=== PATIENT | female | born 1960 | race Caucasian/White ===

== ENCOUNTER 2017-05-12 12:54 | Emergency (ER) | payer OTHER ==
--- NOTE | 2017-05-12 13:19 | UC ---
Respiratory Complaint HPI - HPI Summary HPI Summary: History of COPD with worsening cough over several weeks, with production. Uses albuterol only, with some relief of dyspnea. Increasing pain in the right lower rib cage with worsening cough. Has not been using analgesics. Non-smoker for some time, but has a long history of smoking. - History of Current Complaint Stated Complaint: sob,chest pain Time Seen by Provider: 05/12/17 12:58 Hx Obtained From: Patient Onset/Duration: Gradual Onset, Lasting Weeks - 2 to 3 weeks of cough Timing: Intermittent Episodes Severity Initially: Moderate Severity Currently: Moderate Character: Cough: Productive - green sputum Aggravating Factors: Deep Breaths, Recumbent Position Alleviating Factors: Bronchodilator, Upright Position Associated Signs And Symptoms: Positive: Dyspnea, Pleuritic Chest Pain - Risk Factors Pulmonary Embolism Risk Factors: Negative Cardiac Risk Factors: Negative Pseudomonas Risk Factors: Negative - Allergies/Home Medications Allergies/Adverse Reactions: Allergies Allergy/AdvReac Type Severity Reaction Status Date / Time No Known Allergies Allergy Verified 05/12/17 13:13 Home Medications: Home Medications Albuterol 2.5MG/3ML (0.083%)* [Ventolin 2.5 MG/3 ML NEB.ALEXANDRA*] 2.5 mg INH Q4H PRN 05/12/17 [History Confirmed 05/12/17] Albuterol HFA INHALER* [Ventolin HFA Inhaler*] 2 puff INH Q4H PRN 05/12/17 [ History Confirmed 05/12/17] PMH/Surg Hx/FS Hx/Imm Hx Respiratory History: COPD Neurological History: Other - multiple sclerosis since 1989, stopped meds. Other Neurological History: multiple sclerosis - Surgical History Surgical History: Yes Surgery Procedure, Year, and Place: , tubal ligation - Family History Known Family History: Positive: Cardiac Disease, Hypertension, Diabetes, Other - mother of cirrhosis of the liver. - Social History Occupation: Employed Full-time - school bus [employer] Alcohol Use: None Substance Use Type: None Smoking Status (MU): Light Every Day Tobacco Smoker Type: Cigarettes Amount Used/How Often: 3 cigs daily, TRYING TO QUIT Have You Smoked in the Last Year: No Household Exposure Type: Cigarettes Review of Systems Constitutional: Fever, Fatigue Respiratory: Shortness Of Breath, Cough Cardiovascular: Chest Pain - left lower ribs Motor: Weakness - bilateral leg weakness secondary to MS All Other Systems Reviewed And Are Negative: Yes Physical Exam Triage Information Reviewed: Yes Appearance: Ill-Appearing, Thin Vital Signs Reviewed: Yes Eyes: Positive: Conjunctiva Clear ENT: Positive: Pharynx normal Neck: Positive: Supple, Nontender, No Lymphadenopathy Respiratory: Positive: Decreased breath sounds, Expiration - prolonged Cardiovascular: Positive: RRR, No Murmur Abdomen Description: Positive: Nontender, No Organomegaly, Soft Musculoskeletal Exam: Other - grossly normal Neurological: Positive: Alert Psychological Exam: Normal Skin Exam: Normal UC Diagnostic Evaluation - Laboratory Diagnostic Studies Comment: chest xray with hyperinflation, RML infiltrate Re-Evaluation - Re-Evaluation First Eval Re-Evaluation Time: 14:25 - pain improved, O2 sat 97% post albuterol Change: Improved Respiratory Course/Dx - Course Course Of Treatment: zpack for pneumonia. change to duoneb from albuterol. follow up with PMD. ibuprofen for chest wall pain - Differential Dx/Diagnosis Differential Diagnosis/HQI/PQRI: Bronchitis, Pulmonary Embolism, Other - pneumonia Provider Diagnoses: right middle lobe pneumonia; COPD Discharge - Discharge Plan Condition: Stable Disposition: HOME Prescriptions: Albuterol/Ipratropium NEB.ALEXANDRA* [Duoneb (Albuterol 2.5 MG/Ipratropium 0.5 MG)] 1 neb INH Q6H PRN #120 neb.alexandra PRN Reason: Wheezing Azithromyxin MYLES (NF) [Z-Myles (Zithromax) 250 mg tabs #6] 2 tab PO .TODAY, THEN 1 DAILY #6 tab Patient Education Materials: Community Acquired Pneumonia (ED), COPD (Chronic Obstructive Pulmonary Disease) (ED) Additional Instructions: Take azithromycin with food, but not with dairy. It is a short course, and hopefully you will tolerate any stomach upset. Use duonebs instead of the albuterol which you have at home; this should relieve your breathlessness better than albuterol alone. You have chest wall pain; use ibuprofen 600mg every 8 hours for pain, being cautious that it does not upset your stomach. This is also best taken with food.
[2017-05-12] MEDS ORDERED: Ibuprofen TAB* 600 MG PO ONE (13:20)
[2017-05-12] MEDS ORDERED: Albuterol/Ipratropium NEB.SOL* Albuterol 2.5 MG/Ipratropium 0.5 MG 3 ML INH ONE (13:20)
--- NOTE | 2017-05-12 13:54 | RAD ---
Indication: Cough and dyspnea. 2 views of the chest including dual energy PA views are reviewed and compared to previous exam dated December 27, 2015. No mediastinal shift is noted. Heart is of normal size and configuration. The lung weston demonstrate hyperinflated. Airspace disease in the right base likely representing pneumonia is noted. Left lung field is clear. IMPRESSION: Airspace disease in the right base which may represent right middle lobe pneumonia is present. Hyperinflated lung weston.
[2017-05-12 14:02] VITALS: BP 103/67
== END 2017-05-12 14:46 | disposition home or self-care (01) ==
LOC: UCCORT 12:54
DX: J18.9 Pneumonia, unspecified organism (principal); J44.9 Chronic obstructive pulmonary disease, unspecified; G35 Multiple sclerosis; R00.0 Tachycardia, unspecified; F17.210 Nicotine dependence, cigarettes, uncomplicated
CPT/HCPCS: 71020; 93005; 99213; A9270-GY; G0463